=== PATIENT | female | born 1955 | race Caucasian/White ===

== ENCOUNTER 2022-01-07 10:19 | Emergency (ER) | payer MEDICARE, BC, SELFPAY ==
[2022-01-07 10:38] VITALS: BP 175/83; PULSE 80; RESP 16; TEMP 36.3; O2SAT 96; BMI 35.7
--- NOTE | 2022-01-07 11:07 | ED_ITS ---
HPI - Abdominal Pain General Chief Complaint: Abdominal Pain Stated Complaint: Gut pain Time Seen by Provider: 01/07/22 10:47 History of Present Illness HPI narrative: This 66-year-old female comes in reporting 3 days of left lower quadrant abdominal pain and diarrhea. She states that the pain is constant and is worse with movement. Her ride in the car on the way here was a distinct increase in pain due to the bumps she encountered. She does not report any nausea or vomiting. She does have decreased appetite. She does not have any symptoms of dysuria. She has no prior history of diverticulitis. She expresses some concern about cancer as she has family history of cancer but no personal history. Related Data Previous Rx's Medication Instructions Recorded ciprofloxacin HCl 500 mg tablet 500 mg PO BID #20 tabs 01/07/22 (Cipro) hydrocodone 5 mg-acetaminophen 325 1 tab PO Q4-6H PRN pain #10 tabs 01/07/22 mg tablet metronidazole 500 mg tablet 500 mg PO BID 10 days #20 tabs 01/07/22 Review of Systems Status of ROS Reports: 10 or more systems reviewed and unremarkable except as noted in History and below Narrative Constitutional: No fevers, no weight gain or loss. Eyes: No discharge. No vision changes. HENT: No congestion, no sore throat, no ear pain. Cardiovascular: No chest pain, no palpitations. Respiratory: No shortness of breath, no wheezes, no cough. Gastrointestinal: Left lower quadrant abdominal pain. Diarrhea. No nausea or vomiting. Decreased appetite. Genitourinary: No dysuria, no hematuria. Musculoskeletal: Normal range of motion. Skin: No rashes, no pruritis. Neurological: No dizziness, weakness, sensory change, speech change. Endo/Heme/Allergies: No bruising or bleeding. No polydipsia. Pysch: no suicidality, no anxiety, no insomnia. All other systems reviewed and are negative. [facility] Surgical History (Updated 01/07/22 @ 12:47 by Shayy Lam RN) History of knee replacement Social History Smoking Status: Never smoker Do you use any of these nicotine containing products: None Second hand tobacco smoke exposure: No How often do you have a drink containing alcohol: monthly or less AUDIT-C Alcohol total score: 1 Non-prescribed substance use: denies use Exam Narrative: Exam Narrative: Constitutional: Well-developed, well-nourished, no acute distress. HEENT: Normocephalic, atraumatic. Neck: Normal range of motion. Nontender. Supple. Heart: Regular. No murmurs. Normal rate. Intact distal pulses. Lungs: Clear to auscultation. No chest discomfort. No wheezes, rhonchi, or rales. Abdomen: Normal bowel sounds. Tenderness in the left lower quadrant. No obvious rebound tenderness. Genitalia: Deferred. Back: No midline tenderness. Normal range of motion. Extremities: Normal range of motion. No injury. Skin: Intact. No rash. Warm. No erythema or pallor. Neurologic: No altered sensation. No weakness. Alert and oriented. Psychiatric: No suicidality. No anxiety or depression. No insomnia. Nursing notes and vitals signs are reviewed. Const: Vital Signs, click to edit/add: Vital Signs - 24 hr 01/07/22 10:38 Temperature 97.4 F L Pulse Rate [Right Pulse Oximeter] 80 Respiratory Rate 16 Blood Pressure [Ri ght Upper Arm] 175/83 H Pulse Oximetry 96 Oxygen Delivery Me thod Room Air Course Vital Signs Vital signs: Initial Vital Signs Temperature 97.4 F L 01/07/22 10:38 Temperature Source Tympanic 01/07/22 10:38 Pulse Rate 80 01/07/22 10:38 Pulse Rhythm 01/07/22 10:38 Respiratory Rate 16 01/07/22 10:38 Blood Pressure 175/83 H 01/07/22 10:38 Blood Pressure Mean 113 01/07/22 10:38 Blood Pressure Position Sitting 01/07/22 10:38 Pulse Oximetry 96 01/07/22 10:38 Oxygen Delivery Method 01/07/22 10:38 Vital Signs Temperature 97.4 F L 01/07/22 10:38 Pulse Rate 80 01/07/22 10:38 Respiratory Rate 16 01/07/22 10:38 Blood Pressure 175/83 H 01/07/22 10:38 Pulse Oximetry 96 01/07/22 10:38 Oxygen Delivery Method 01/07/22 10:38 Temperature 97.4 F L 01/07/22 10:38 Pulse Rate 80 01/07/22 10:38 Respiratory Rate 16 01/07/22 10:38 Blood Pressure 175/83 H 01/07/22 10:38 Pulse Oximetry 96 01/07/22 10:38 Oxygen Delivery Method 01/07/22 10:38 MDM - Abdominal Pain MDM Narrative Medical decision making narrative: This patient comes in with 3 days of abdominal pain with diarrhea. CT scan with IV contrast was ordered and returns with evidence of acute diverticulitis. The patient's vital signs are normal. There is no evidence of a complication with no findings of free air or rupture or abscess. She received a prescription for Cipro, Flagyl, and some tablets of [place]. Instructions were given regarding signs and symptoms that would indicate a need for return and re-evaluation. Lab Data Labs: Lab Results 01/07/22 01/07/22 01/07/22 Range/Units 12:30 12:30 12:30 WBC 10.85 (4.50-11.00) K/uL RBC 4.24 (4.00-5.20) m/uL Hgb 13.3 (12.0-16.0) gm/dL Hct 40.0 (33.0-51.0) % MCV 94 (80-100) fL MCH 31 (26-34) pg MCHC 33 (32-36) gm/dL RDW Coeff of Anthony 12.9 (11.5-15.5) % Plt Count 216 (140-440) K/uL Neut % (Auto) 76.9 H (42.0-72.0) % Lymph % (Auto) 15.8 L (20-44) % [place] % (Auto) 5.8 (0.0-11.0) % Eos % (Auto) 1.1 (0.0-7.0) % Baso % (Auto) 0.2 (0.0-3.0) % Neut # (Auto) 8.30 H (1.7-7.0) K/uL Lymph # (Auto) 1.70 (0.90-2.90) K/uL [place] # (Auto) 0.60 (0.00-0.90) K/UL Eos # (Auto) 0.12 (0.00-0.50) K/uL Baso # (Auto) 0.02 (0.00-0.30) K/uL Abs Immat Gran (auto) 0.02 (0.00-0.30) K/uL ESR 30 H (2-20) mm/hr Sodium 136 (135-149) mmol/L Potassium 3.7 (3.6-5.1) mmol/L Chloride 103 (96-114) mmol/L Carbon Dioxide 25 (20-32) mmol/L BUN 12 (7-30) mg/dL Creatinine 0.7 (0.5-1.5) mg/dL Estimated Creat Clear 46.50 Estimated GFR 94 ml/min Glucose 102 (60-115) mg/dL Calcium 9.0 (8.4-10.6) mg/dL Urine Color (Yellow) Urine Appearance (Clear) Urine pH (5.0-8.5) Ur Specific [place] (1.000-1.030) Urine Protein (Negative) Urine Glucose (UA) (Negative) Urine Ketones (Negative) Urine Blood (Negative) Urine Nitrite (Negative) Urine Bilirubin (Negative) Urine Urobilinogen (0.2-1.0) Ur Leukocyte Esterase (Negative) Urine RBC (0-2) Urine WBC (0-5) Ur Squamous Epith Cells (None-Few) Urine Bacteria (None) 01/07/22 Range/Units 12:40 WBC (4.50-11.00) K/uL RBC (4.00-5.20) m/uL Hgb (12.0-16.0) gm/dL Hct (33.0-51.0) % MCV (80-100) fL MCH (26-34) pg MCHC (32-36) gm/dL RDW Coeff of Anthony (11.5-15.5) % Plt Count (140-440) K/uL Neut % (Auto) (42.0-72.0) % Lymph % (Auto) (20-44) % [place] % (Auto) (0.0-11.0) % Eos % (Auto) (0.0-7.0) % Baso % (Auto) (0.0-3.0) % Neut # (Auto) (1.7-7.0) K/uL Lymph # (Auto) (0.90-2.90) K/uL [place] # (Auto) (0.00-0.90) K/UL Eos # (Auto) (0.00-0.50) K/uL Baso # (Auto) (0.00-0.30) K/uL Abs Immat Gran (auto) (0.00-0.30) K/uL ESR (2-20) mm/hr Sodium (135-149) mmol/L Potassium (3.6-5.1) mmol/L Chloride (96-114) mmol/L Carbon Dioxide (20-32) mmol/L BUN (7-30) mg/dL Creatinine (0.5-1.5) mg/dL Estimated Creat Clear Estimated GFR ml/min Glucose (60-115) mg/dL Calcium (8.4-10.6) mg/dL Urine Color Yellow (Yellow) Urine Appearance Clear (Clear) Urine pH 7.0 (5.0-8.5) Ur Specific [place] 1.010 (1.000-1.030) Urine Protein Negative (Negative) Urine Glucose (UA) Negative (Negative) Urine Ketones Negative (Negative) Urine Blood 1+ A (Negative) Urine Nitrite Negative (Negative) Urine Bilirubin Negative (Negative) Urine Urobilinogen 0.2 (0.2-1.0) Ur Leukocyte Esterase 1+ A (Negative) Urine RBC 2-5 A (0-2) Urine WBC 2-5 (0-5) Ur Squamous Epith Cells Few (None-Few) Urine Bacteria Few A (None) ECG Data Interpretation: Wall thickening of the distal descending colon with surrounding inflammatory fat stranding compatible with acute diverticulitis. Small amount of free fluid in the pelvis. No evidence of perforation or abscess. No other acute findings. Discharge Plan Discharge Clinical Impression: Diverticulitis Patient Disposition: Home, Self-Care Condition: Unchanged Instructions: Diverticulitis (ED) Additional Instructions: Take medications as prescribed. Follow up with MD or return if not improving or worsening symptoms happen. Prescriptions: New hydrocodone-acetaminophen 5-325 mg tablet 1 tab PO Q4-6H PRN (Reason: pain) Qty: 10 0RF ciprofloxacin HCl [Cipro] 500 mg tablet 500 mg PO BID Qty: 20 0RF metronidazole 500 mg tablet 500 mg PO BID 10 Days Qty: 20 0RF Follow Up/Referrals: Christie Menon MD [Primary Care Provider] - Stand Alone Forms: [employer] Info Instructions
--- NOTE | 2022-01-07 12:03 | CRLHL7_ITS ---
For Patients: As a result of the Century Cures Act, medical imaging exams and procedure reports are released immediately into your electronic medical record. You may view this report before your referring provider. If you have questions, please contact your health care provider. Indication: Left lower quadrant pain Technique: Contrast CT abdomen and pelvis. Comparison: No comparison Findings: The heart size is normal. Basilar atelectasis spleen liver gallbladder pancreas adrenal glands are unremarkable. Kidneys appear unremarkable normal appendix. Urinary bladder unremarkable small amount of fluid in the pelvis diverticulosis. Bowel wall thickening of distal descending colon with pericolonic inflammatory change. No suspicious bony lesions are seen. Impression: Diverticulitis of the distal descending colon. Please note that all CT scans at this facility use dose modulation, iterative reconstruction, and/or weight-based dosing when appropriate to reduce radiation dose to as low as reasonably achievable. Dictated by Karissa Chase MD @ 01/08/2022 8:16:24 PM (Electronically Signed)
[2022-01-07 13:09] LABS: Basophils Absolute Auto 0.02 K/uL (0.00-0.30); Basophils Percent Auto 0.2 % (0.0-3.0); Eosinophils Absolute Auto 0.12 K/uL (0.00-0.50); Eosinophils Percent Auto 1.1 % (0.0-7.0); Hemoglobin* 13.3 gm/dL (12.0-16.0); Immature Granulocytes Abs Auto 0.02 K/uL (0.00-0.30); Lymphocytes Percent Auto 15.8 % (20-44); Mean Corpuscular HGB Conc 33 gm/dL (32-36); Mean Corpuscular Hemoglobin 31 pg (26-34); Mean Corpuscular Volume 94 fL (80-100); Monocytes Percent Auto 5.8 % (0.0-11.0); Neutrophils Percent Auto 76.9 % (42.0-72.0); Platelet Count* 216 K/uL (140-440); RDW Coefficient of Variation % 12.9 % (11.5-15.5); Red Blood Count 4.24 m/uL (4.00-5.20); Slide Review Reflex No; White Blood Count* 10.85 K/uL (4.50-11.00)
[2022-01-07 13:10] LABS: Chloride* 103 mmol/L (96-114)
[2022-01-07 13:11] LABS: Potassium* 3.7 mmol/L (3.6-5.1); Sodium* 136 mmol/L (135-149)
[2022-01-07 13:13] LABS: Creatinine* 0.7 mg/dL (0.5-1.5); Estimated Glomerular Filt Rate 94 ml/min
[2022-01-07 13:14] LABS: Blood Urea Nitrogen* 12 mg/dL (7-30); Carbon Dioxide* 25 mmol/L (20-32); Glucose* 102 mg/dL (60-115)
[2022-01-07 13:21] LABS: Appearance Urine Clear (Clear); Bilirubin Urine Negative (Negative); Blood Urine 1+ (Negative); Color Urine Yellow (Yellow); Glucose Urine Negative (Negative); Ketones Urine Negative (Negative); Leukocyte Esterase Urine 1+ (Negative); Nitrite Urine Negative (Negative); Protein Urine Negative (Negative); Urobilinogen Urine 0.2 (0.2-1.0)
[2022-01-07 13:38] LABS: Bacteria Urine Few; Squamous Epithelial Cell Urine Few (None-Few)
[2022-01-07 14:08] LABS: Erythrocyte SedimentationRate* 30 mm/hr (2-20)
== END 2022-01-07 16:42 | disposition home or self-care (01) ==
PROVIDERS: Emergency Provider Emergency Medicine Emergency Medical Services; PCP Family Medicine
DX: K57.12 Diverticulitis of small intestine without perforation or abscess without bleeding (principal)
CPT/HCPCS: 36415; 74177; 80048; 81001; 85025; 85651; 87086; 99284; Q9967